=== PATIENT | female | born 1960 | race Caucasian/White ===

== ENCOUNTER 2023-02-19 11:41 | Emergency (ER) | payer OTHER, SELFPAY ==
[2023-02-19] VITALS (12 sets, daily range): BP systolic 147–171; BP diastolic 76–88; PULSE 67–78; RESP 16–20; TEMP 36.2; O2SAT 90–99; BMI 46.0
--- NOTE | 2023-02-19 12:29 | ED_ITS ---
HPI - General Adult General Chief complaint: Chest Pain Stated complaint: High BP, chest pressure, headache Time Seen by Provider: 02/19/23 11:46 History of Present Illness HPI narrative: This 63-year-old female comes in reporting several somewhat nonspecific complaints. She states that the following symptoms have been present for the past couple months and seemed to be increasing a little bit. She reports some chest tightness and states that she does use albuterol which can help some with this. She reports shortness of breath but states that it is a feeling like her chest is tight. She does arrive with normal vital signs and is able to speak in complete sentences. She also reports some dizziness which she clarifies to include some feeling of lightheadedness and vertigo. She states that these symptoms are minimal or absent when remaining still but worse with movement. This is been present over the past few days now. She also is concerned that her blood pressure is elevated. She is in touch with her primary physician regarding this over the past several months but yet is not on any medication for blood pressure. She does not have any cardiac risk factors. She states that she has lost some weight and is due to have bilateral knee replacements. Additionally she recently had a dental implant that broke and had to be removed. She is in process in this regard with her dentist also. She does report some nausea related to the vertigo symptoms. She does not have any vomiting, diaphoresis, or exercise intolerance. Related Data Previous Rx's Medication Instructions Recorded amlodipine 5 mg tablet (Norvasc) 5 mg PO DAILY #30 tabs 02/19/23 meclizine 25 mg tablet 25 mg PO QID #20 tabs 02/19/23 ondansetron HCl 4 mg tablet 4 mg PO Q6H #10 tabs 02/19/23 Allergies Allergy/AdvReac Type Severity Reaction Status Date / Time clindamycin Allergy Verified 02/19/23 11:50 venlafaxine [From Effexor] Allergy Verified 02/19/23 11:50 Review of Systems Status of ROS: Reports: 10 or more systems reviewed and unremarkable except as noted in History and below Narrative: Constitutional: No fevers, no weight gain or loss. Eyes: No discharge. No vision changes. HENT: No congestion, no sore throat, no ear pain. Cardiovascular: No palpitations. She clarifies her chest discomfort as a mild burning sensation that seems to be on the skin of her chest only. Respiratory: No shortness of breath, no wheezes, no cough. Gastrointestinal: No abdominal pain, no vomiting, no diarrhea. Genitourinary: No dysuria, no hematuria. Musculoskeletal: Normal range of motion. Skin: No rashes, no pruritis. Neurological: No dizziness, weakness, sensory change, speech change. Endo/Heme/Allergies: No bruising or bleeding. No polydipsia. Pysch: no suicidality, no anxiety, no insomnia. All other systems reviewed and are negative. PFSH PFSH Social History Smoking Status: Former smoker Do you use any of these nicotine containing products: None Second hand tobacco smoke exposure: No How often do you have a drink containing alcohol: monthly or less How many standard drinks containing alcohol do you have on a typical day: 1 or 2 How often do you have six or more drinks on one occasion: Never AUDIT-C Alcohol total score: 1 Non-prescribed substance use: denies use service: No Exam Const: Vital Signs, click to edit/add: Vital Signs - 24 hr 02/19/23 11:51 Temperature 97.1 F L Pulse Rate [Pulse Oximeter] 68 Respiratory Rate 20 Blood Pressure [Ri ght Forearm] 158/76 H Pulse Oximetry 99 Oxygen Delivery Me thod Room Air Course Vital Signs Vital signs: Initial Vital Signs Temperature 97.1 F L 02/19/23 11:51 Temperature Source Temporal Artery Scan 02/19/23 11:51 Pulse Rate 68 02/19/23 11:51 Pulse Rhythm Regular 02/19/23 11:51 Respiratory Rate 20 02/19/23 11:51 Blood Pressure 158/76 H 02/19/23 11:51 Blood Pressure Mean 103 02/19/23 11:51 Blood Pressure Position Supine 02/19/23 11:51 Pulse Oximetry 99 02/19/23 11:51 Oxygen Delivery Method Room Air 02/19/23 11:51 Vital Signs Temperature 97.1 F L 02/19/23 11:51 Pulse Rate 68 02/19/23 11:51 Respiratory Rate 20 02/19/23 11:51 Blood Pressure 158/76 H 02/19/23 11:51 Pulse Oximetry 99 02/19/23 11:51 Oxygen Delivery Method Room Air 02/19/23 11:51 Temperature 97.1 F L 02/19/23 11:51 Pulse Rate 68 02/19/23 11:51 Respiratory Rate 20 02/19/23 11:51 Blood Pressure 158/76 H 02/19/23 11:51 Pulse Oximetry 99 02/19/23 11:51 Oxygen Delivery Method Room Air 02/19/23 11:51 Medical Decision Making MDM Narrative Medical decision making narrative: This patient complains of some chest tightness and is concerned about her blood pressure elevated over these past few months. She does have numerous somewhat nonspecific complaints. She does describe some vertigo symptoms with associated nausea. She did receive a meclizine tablet along with Zofran and states that those symptoms have improved. EKG today shows normal sinus rhythm without any ST or T-wave abnormalities. Additionally her labs all returned normal including a troponin at 0. These results are communicated with the patient. I stated that it we typically rely on a person's primary physician to initiate an manage blood pressure medications. This patient is reporting elevated blood pressures recorded at home over the past several months so I did prescribe a low dose of Norvasc but encourage the patient to contact her primary physician. She plans to do this yet this afternoon to see if this is an acceptable plan. She also received prescriptions for meclizine and Zofran. Lab Data Labs: Lab Results 02/19/23 02/19/23 Range/Units 12:28 12:38 WBC 6.40 (4.50-11.00) K/uL RBC 4.95 (4.00-5.20) m/uL Hgb 13.1 (12.0-16.0) gm/dL Hct 42.2 (33.0-51.0) % MCV 85 (80-100) fL MCH 27 (26-34) pg MCHC 31 L (32-36) gm/dL RDW Coeff of Tye 13.3 (11.5-15.5) % Plt Count 248 (140-440) K/uL Neut % (Auto) 63.3 (42.0-72.0) % Lymph % (Auto) 29.7 (20-44) % Hyde % (Auto) 5.6 (0.0-11.0) % Eos % (Auto) 0.9 (0.0-7.0) % Baso % (Auto) 0.3 (0.0-3.0) % Neut # (Auto) 4.05 (1.7-7.0) K/uL Lymph # (Auto) 1.90 (0.90-2.90) K/uL Hyde # (Auto) 0.40 (0.00-0.90) K/UL Eos # (Auto) 0.06 (0.00-0.50) K/uL Baso # (Auto) 0.02 (0.00-0.30) K/uL Abs Immat Gran (auto) 0.01 (0.00-0.30) K/uL Imm/Tot Granulo (auto) 0.2 % Sodium 143 (135-149) mmol/L Potassium 4.2 (3.6-5.1) mmol/L Chloride 106 (96-114) mmol/L Carbon Dioxide 27 (20-32) mmol/L Anion Gap 10 (7-15) mEq/L BUN 16 (7-30) mg/dL Creatinine 0.7 (0.5-1.5) mg/dL Estimated Creat Clear 52.51 Estimated GFR 96 ml/min Glucose 114 (60-115) mg/dL Calcium 9.2 (8.4-10.6) mg/dL POC Troponin I 0.00 L (0.01-0.04) ng/ml ECG Data Attestation: I personally reviewed and interpreted this ECG as follows: Interpretation: Normal sinus rhythm. Rate is 71 beats per minute. There are no ST or T-wave ab normalities. Discharge Plan Discharge Clinical Impression: Elevated blood pressure reading, Atypical chest pain Patient Disposition: Home, Self-Care Condition: Improved Additional Instructions: Take medication as prescribed. Follow up with primary physician for management of blood pressure. Return if worsening. Prescriptions: New ondansetron HCl 4 mg tablet 4 mg PO Q6H Qty: 10 0RF meclizine 25 mg tablet 25 mg PO QID Qty: 20 0RF amlodipine [Norvasc] 5 mg tablet 5 mg PO DAILY Qty: 30 2RF Follow Up/Referrals: Dorinda Jenkins MD [Primary Care Provider] - Stand Alone Forms: [email or web address] Info Instructions
[2023-02-19 12:51] LABS: Basophils Absolute Auto 0.02 K/uL (0.00-0.30); Basophils Percent Auto 0.3 % (0.0-3.0); Eosinophils Absolute Auto 0.06 K/uL (0.00-0.50); Eosinophils Percent Auto 0.9 % (0.0-7.0); Hematocrit 42.2 % (33.0-51.0); Hemoglobin* 13.1 gm/dL (12.0-16.0); Immature Granulocytes Abs Auto 0.01 K/uL (0.00-0.30); Immature Granulocytes Pct Auto 0.2 %; Lymphocytes Percent Auto 29.7 % (20-44); Mean Corpuscular HGB Conc 31 gm/dL (32-36); Mean Corpuscular Hemoglobin 27 pg (26-34); Mean Corpuscular Volume 85 fL (80-100); Monocytes Percent Auto 5.6 % (0.0-11.0); Neutrophils Absolute Auto 4.05 K/uL (1.7-7.0); Neutrophils Percent Auto 63.3 % (42.0-72.0); Platelet Count* 248 K/uL (140-440); RDW Coefficient of Variation % 13.3 % (11.5-15.5); Red Blood Count 4.95 m/uL (4.00-5.20)
[2023-02-19] MEDS: MECLIZINE HCL 25 MG TABLET PO (12:51)
[2023-02-19] MEDS: ONDANSETRON ODT 4 MG TAB PO (12:51)
[2023-02-19 12:55] LABS: Slide Review Reflex No
[2023-02-19 12:56] LABS: Chloride* 106 mmol/L (96-114); Sodium* 143 mmol/L (135-149)
[2023-02-19 12:57] LABS: Potassium* 4.2 mmol/L (3.6-5.1)
[2023-02-19 12:59] LABS: Creatinine* 0.7 mg/dL (0.5-1.5); Est. Creatinine Clearance* 52.51; Estimated Glomerular Filt Rate 96 ml/min
[2023-02-19 13:00] LABS: Anion Gap 10 mEq/L (7-15); Blood Urea Nitrogen* 16 mg/dL (7-30); Calcium* 9.2 mg/dL (8.4-10.6); Carbon Dioxide* 27 mmol/L (20-32); Glucose* 114 mg/dL (60-115)
== END 2023-02-19 13:53 | disposition home or self-care (01) ==
PROVIDERS: Emergency Provider Emergency Medicine Emergency Medical Services; PCP Family Medicine
DX: R07.89 Other chest pain (principal); R03.0 Elevated blood-pressure reading, without diagnosis of hypertension
CPT/HCPCS: 36415; 80048; 84484; 85025; 93005; 94761; 99284; A9270

== ENCOUNTER 2023-11-25 13:00 | Outpatient (RCR) | payer MEDICARE, BC, SELFPAY | END 2024-03-24 23:59 | disposition home or self-care (01) | PROVIDERS: PCP Family Medicine; Visit Provider Orthopaedic Surgery | DX: Z96.651 Presence of right artificial knee joint (principal); Z51.89 Encounter for other specified aftercare; M25.561 Pain in right knee; Z74.09 Other reduced mobility; R26.9 Unspecified abnormalities of gait and mobility; M62.81 Muscle weakness (generalized) | CPT/HCPCS: 97110; 97140; 97161 ==

== ENCOUNTER 2024-04-11 11:00 | Outpatient (RCR) | payer MEDICARE, BC, SELFPAY | END 2024-07-05 15:03 | disposition home or self-care (01) | PROVIDERS: PCP Family Medicine; Visit Provider Family Medicine | DX: M54.2 Cervicalgia (principal); G89.29 Other chronic pain; Z74.09 Other reduced mobility; M62.81 Muscle weakness (generalized); Z51.89 Encounter for other specified aftercare | CPT/HCPCS: 97012; 97110; 97140; 97162 ==